=== PATIENT | male | born 1990 | race Caucasian/White ===

== ENCOUNTER 2017-08-24 00:52 | Emergency (ER) | payer MEDICAID, OTHER ==
--- NOTE | 2017-08-24 01:20 | EDM.PDOC ---
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 Note the patient caught his finger between the handle of a hammer and a piece of steel with no history of foreign body, previous injury to this finger, paresthesias, neurological deficits, or other complaints or injuries. He is right-handed. He is uncertain when he last received his tetanus booster. No recent history of abdominal pain, heartburn, nausea, diarrhea, melena, gross hematochezia, or any food intolerance, including fatty foods, etc.. The patient also denies any recent fever, cough, wheezing, dyspnea, etc.. He did rinse the laceration at work with dressing also placed prior to arrival. Onset: Today, Sudden Onset Date: 08/24/17 Onset Time: 00:40 Duration: Constant Location: Reports: Upper Extremity, Right. Denies: Head, Face, Neck, Chest, Abdomen, Back, Pelvis, Upper Extremity, Left, Radiates to Quality: Reports: Same as Previous Episode, Throbbing Severity: Moderate Improves with: Reports: Rest Worsens with: Reports: Movement Context: Reports: Trauma (As above) Associated Symptoms: Denies: Confusion, Chest Pain, Cough, Diaphoresis, Fever/ Chills, Loss of Appetite, Nausea/Vomiting, Shortness of Breath, Syncope, Weakness Treatments FORENSIC SPECIALIST: Reports: Dressing(s) Right 2-Index finger Pain Score (Numeric/FACES): 5 - Related Data Allergies Allergy/AdvReac Type Severity Reaction Status Date / Time No Known Allergies Allergy Verified 08/24/17 01:01 Home Meds: Home Meds Clindamycin HCl 150 mg PO QID #40 capsule 08/24/17 [Rx] Past Medical History Musculoskeletal History: Reports: Fracture, Other (See Below). Denies: Gout, RA , SLE Other Musculoskeletal History: Multiple previous fractures all secondary to skateboard injuries including right 10th rib fracture on 04/21/13, right fifth metacarpal fracture on 11/29/98, right mid tibial and fibular fracture at age 15 , right ankle fracture on 03/02/05, right wrist fracture at age 9, right proximal radial fracture at age 23, and right second and third metatarsal fractures on 09/12/07 Neurological History: Denies: Concussion, Head Trauma Psychiatric History: Reports: Addiction, Other (See Below) Other Psychiatric History: Previous history of marijuana use as below - Past Surgical History Musculoskeletal Surgical History: Reports: None. Denies: ORIF Social & Family History - Tobacco Use Smoking Status *Q: Current Every Day Smoker Tobacco Use Within Last Twelve Months: Cigarettes Years of Tobacco use: 10 Packs/Tins Daily: 0.4 Packs/Tins Daily Comment: 1/3-1 pack per day with additional e-cigarette use since age 17 Used Tobacco, but Quit: No Smoking Cessation Information Provided To Patient: Yes Second Hand Smoke Exposure: No Second Hand Smoke Education Provided: No - Recreational Drug Use Recreational Drug Use: Yes Drug Use in Last 12 Months: No Recreational Drug Type: Reports: Marijuana/Hashish (Daily marijuana use between ages 17 and 24). Denies: Amphetamines (Speed), Cocaine, Heroin, LSD (Acid), Methamphetamine, Morphine, Oxycodone Recreational Drug Route: Reports: Inhaled - Living Situation & Occupation Living situation: Reports: Single, Alone Occupation: Employed ([employer]) Review of Systems - Review of Systems Review Of Systems: ROS reveals no pertinent complaints other than HPI. ED EXAM, GENERAL - Physical Exam Exam: See Below Exam Limited By: No Limitations General Appearance: Alert, WD/WN, No Apparent Distress Head: Atraumatic, Normocephalic. No: Facial Swelling, Facial Tenderness, Sinus Tenderness Neck: Normal Inspection, Supple, Non-Tender, Full Range of Motion. No: Lymphadenopathy (L), Lymphadenopathy (R) Respiratory/Chest: No Respiratory Distress, Lungs Clear, Normal Breath Sounds, No Accessory Muscle Use, Chest Non-Tender. No: Pleural Rub, Retractions Cardiovascular: Normal Peripheral Pulses, Regular Rate, Rhythm, No Edema, No Gallop, No JVD, No Murmur, No Rub. No: Gallop/S3, Gallop/S4, Friction Rub Peripheral Pulses: 2+: Radial (L), Radial (R) GI/Abdominal: Normal Bowel Sounds, Soft, Non-Tender, No Organomegaly, No Distention, No Abnormal Bruit, No Mass, Pelvis Stable. No: Guarding (Male) Exam: Deferred Rectal (Males) Exam: Deferred Back Exam: Normal Inspection, Full Range of Motion. No: CVA Tenderness (L), CVA Tenderness (R), Muscle Spasm Extremities: Normal Capillary Refill, Limited Range of Motion (Digit 2 of the right hand secondary to fracture and swelling), Other (Mild ecchymosis, swelling , and localized palpation pain over the middle phalanx of digit #2 of the right hand. 1 cm laceration over the mid palmar surface of the middle phalanx with no deformity, bone protrusion, etc. Additional 2 superficial lacerations over the dorsal surface of the same area not requiring repair) Neurological: Alert, Oriented, CN II-XII Intact, Normal Cognition, Normal Gait, No Motor/Sensory Deficits Psychiatric: Normal Affect, Normal Mood Skin Exam: Ecchymosis, Wound/Incision (As above) Lymphatic: No Adenopathy ED TRAUMA EXTREMITY PROCEDURES - Laceration/Wound Repair Right Middle Ventral Finger Lac/Wound Length In cm: 1.0 Appearance: Superficial, Subcutaneous, Irregular, Clean Distal NVT: Neuro & Vascular Intact, No Tendon Injury Anesthetic Type: Local Local Anesthesia - Lidocaine (Xylocaine): 1% Plain Local Anesthetic Volume: 4cc Skin Prep: Providone-Iodine (Betadine) Saline Irrigation (cc's): 0 Exploration/Debridement/Repair: Wound Explored, In a Bloodless Field, Explored to Base, No Foreign Material Found Closed With: Sutures Suture Size: 4-0 # of Sutures: 3 Suture Type: Nylon, Interrupted, Simple Sterile Dressing Applied: Nurse Tetanus Status Addressed: Yes Complications: No Course - Vital Signs Last Recorded V/S: Last Vital Signs Temp 36.5 C 08/24/17 00:54 Pulse 75 08/24/17 00:54 Resp 18 08/24/17 00:54 BP 120/68 08/24/17 00:54 Pulse Ox 98 08/24/17 00:54 Vital Signs - 24 hr 08/24/17 00:54 Temperature [ 36.5 C Temporal] Pulse, 75 Peripheral [ Left Pulse Oximetry] Respiratory 18 Rate Blood Pressure 120/68 [Left Upper Arm ] O2 Sat by Pulse 98 Oximetry - Orders/Labs/Meds Orders: Active Orders 24 hr Category Date Time Status Vaccines to be Administered [RC] PER UNIT ROUTINE Care 08/24/17 01:23 Active Fingers Second Digit Rt F6 [CR] Stat Exams 08/24/17 01:20 Ordered Durable Medical Equipment for Discharge [DME for Oth 08/24/17 02:08 Ordered Discharge] [COMM] Routine Obtain Past Medical Record [OM.PC] Routine Oth 08/24/17 01:20 Active Labs: None Meds: Medications Discontinued Medications Generic Name Dose Route Start Last Admin Trade Name Quita PRN Reason Stop Dose Admin Clindamycin HCl 150 mg 08/24/17 02:09 08/24/17 02:15 Cleocin PO 08/24/17 02:10 150 mg ONETIME ONE Administration Diphtheria/Tetanus/Acell Pertussis 0.5 ml 08/24/17 01:23 08/24/17 01:40 Adacel IM 08/24/17 01:24 0.5 ml .ONCE ONE Administration Lidocaine HCl 5 ml 08/24/17 01:22 08/24/17 01:51 Xylocaine-Mpf 1% INJECT 08/24/17 01:23 5 ml ONETIME ONE Administration Lidocaine HCl 5 ml 08/24/17 01:23 08/24/17 01:58 Xylocaine-Mpf 1% INJECT 08/24/17 01:24 Not Given ONETIME ONE Neomycin/Polymyxin/Bacitracin 1 each 08/24/17 01:22 08/24/17 01:43 Triple Antibiotic Oint TOP 08/24/17 01:23 1 each ONETIME ONE Administration - Radiology Interpretation Free Text/Narrative:: X-rays of digit #2 of the right hand, complete, shows evidence of a comminuted, non-angulated, nondisplaced fracture of the entire midshaft of the middle phalanx with no evidence of foreign body or dislocation Departure - Departure Time of Disposition: 02:25 Disposition: Home, Self-Care 01 Condition: Good Clinical Impression: Laceration, Fracture, Tobacco abuse counseling - Discharge Information Prescriptions: Clindamycin HCl 150 mg PO QID #40 capsule Instructions: Finger Fracture, [id number], Laceration Care, Adult, Easy-to- Read, Stitches, [place], or Adhesive Wound Closure Referrals: Nathalie Rush PA-C [Primary Care Provider] - Forms: ED Department Discharge Additional Instructions: ED HPI GENERAL MEDICAL PROBLEM - General Chief Complaint: Upper Extremity Injury/Pain Stated Complaint: right index finger injury Time Seen by Provider: 08/24/17 01:15 Source of Information: Reports: Patient, Old Records ([facility] chart/EMR) History Limitations: Reports: No Limitations - History of Present Illness INITIAL COMMENTS - FREE TEXT/NARRATIVE: Patient was brought to the emergency room via transport vehicle from [facility] for evaluation of a second right finger laceration and contusion, which occurred at about 00:40 hours this evening. Note the patient caught his finger between the handle of a hammer and a piece of steel with no history of foreign body, previous injury to this finger, paresthesias, neurological deficits, or other complaints or injuries. He is right-handed. He is uncertain when he last received his tetanus booster. No recent history of abdominal pain, heartburn, nausea, diarrhea, melena, gross hematochezia, or any food intolerance, including fatty foods, etc.. The patient also denies any recent fever, cough, wheezing, dyspnea, etc.. He did rinse the laceration at work with dressing also placed prior to arrival. Onset: Today, Sudden Onset Date: 08/24/17 Onset Time: 00:40 Duration: Constant Location: Reports: Upper Extremity, Right. Denies: Head, Face, Neck, Chest, Abdomen, Back, Pelvis, Upper Extremity, Left, Radiates to Quality: Reports: Same as Previous Episode, Throbbing Severity: Moderate Improves with: Reports: Rest Worsens with: Reports: Movement Context: Reports: Trauma (As above) Associated Symptoms: Denies: Confusion, Chest Pain, Cough, Diaphoresis, Fever/ Chills, Loss of Appetite, Nausea/Vomiting, Shortness of Breath, Syncope, Weakness Treatments FORENSIC SPECIALIST: Reports: Dressing(s) Right 2-Index finger Pain Score (Numeric/FACES): 5 - Related Data Allergies Allergy/AdvReac Type Severity Reaction Status Date / Time No Known Allergies Allergy Verified 08/24/17 01:01 Home Meds: Home Meds . [No Known Home Meds] 08/24/17 [History] Past Medical History Musculoskeletal History: Reports: Fracture. Denies: Gout, RA, SLE Course - Vital Signs Last Recorded V/S: Last Vital Signs Temp 36.5 C 08/24/17 00:54 Pulse 75 08/24/17 00:54 Resp 18 08/24/17 00:54 BP 120/68 08/24/17 00:54 Pulse Ox 98 08/24/17 00:54 - Orders/Labs/Meds Orders: Active Orders 24 hr Category Date Time Status Vaccines to be Administered [RC] PER UNIT ROUTINE Care 08/24/17 01:23 Active Fingers Second Digit Rt F6 [CR] Stat Exams 08/24/17 01:20 Ordered Obtain Past Medical Record [OM.PC] Routine Oth 08/24/17 01:20 Active Meds: Medications Discontinued Medications Generic Name Dose Route Start Last Admin Trade Name Freq PRN Reason Stop Dose Admin Diphtheria/Tetanus/Acell Pertussis 0.5 ml 08/24/17 01:23 08/24/17 01:40 Adacel IM 08/24/17 01:24 0.5 ml .ONCE ONE Administration Lidocaine HCl 5 ml 08/24/17 01:22 Xylocaine-Mpf 1% INJECT 08/24/17 01:23 ONETIME ONE Lidocaine HCl 5 ml 08/24/17 01:23 Xylocaine-Mpf 1% INJECT 08/24/17 01:24 ONETIME ONE Neomycin/Polymyxin/Bacitracin 1 each 08/24/17 01:22 Triple Antibiotic Oint TOP 08/24/17 01:23 ONETIME ONE - Radiology Interpretation Free Text/Narrative:: X-rays of digit #2 of the right hand, complete, shows evidence of a comminuted, non-angulated, nondisplaced fracture of the entire midshaft of the middle phalanx with no evidence of foreign body or dislocation Departure - Departure Condition: Good Clinical Impression: Laceration, Fracture, Tobacco abuse counseling - Discharge Information Instructions: Finger Fracture, [id number], Laceration Care, Adult, Easy-to- Read, Stitches, Lluvia, or Adhesive Wound Closure Referrals: Nathalie Rush PA-C [Primary Care Provider] - Forms: ED Department Discharge Additional Instructions: 1. Followup with your regular provider in 10-14 days as directed for suture removal and repeat x-rays of the second finger of your right hand. 2. Tylenol 650 mg by mouth every 4 hours and/or OTC ibuprofen 2-3 tabs by mouth every 6 hours with food as directed./needed. 3. Antibacterial soap wash/soak with subsequent antibacterial dressing such as Neosporin, etc. as directed 2 times per day until the wound or laceration site completely heals. Keep the area clean and dry with activity restrictions as discussed. 4. Ice packs to affected area as needed 5. Work excuse- See Form 6. Activity restrictions as discussed, including 10 pound lifting restriction. Finger splint is to be worn at all times with exception of bathing and wound care until otherwise directed 7. Stop all tobacco and e-cigarette use TERRI as directed/per provided information and consider contacting [employer]uit [employer]ne, etc.. 8. Immediately after this visit verify that your cellular telephone's voicemail has been activated and is empty. Also verify that your home telephone 's answering machine is operating properly and has space to receive messages. Note that it is sometimes necessary for us to be able to contact you at a later date to discuss your medical care. - My Orders Last 24 Hours: My Active Orders 08/24/17 01:20 Fingers Second Digit Rt F6 [CR] Stat Obtain Past Medical Record [OM.PC] Routine 08/24/17 01:23 Vaccines to be Administered [RC] PER UNIT ROUTINE - Assessment/Plan Last 24 Hours: My Active Orders 08/24/17 01:20 Fingers Second Digit Rt F6 [CR] Stat Obtain Past Medical Record [OM.PC] Routine 08/24/17 01:23 Vaccines to be Administered [RC] PER UNIT ROUTINE 1. Followup with your regular provider in 10-14 days as directed for suture removal and repeat x-rays of the second finger of your right hand. 2. Tylenol 650 mg by mouth every 4 hours and/or OTC ibuprofen 2-3 tabs by mouth every 6 hours with food as directed./needed. 3. Antibacterial soap wash/soak with subsequent antibacterial dressing such as Neosporin, etc. as directed 2 times per day until the wound or laceration site completely heals. Keep the area clean and dry with activity restrictions as discussed. 4. Ice packs to affected area as needed 5. Work excuse- See Form 6. Activity restrictions as discussed, including 10 pound lifting restriction. Finger splint is to be worn at all times with exception of bathing and wound care until otherwise directed 7. Stop all tobacco and e-cigarette use TERRI as directed/per provided information and consider contacting Quit LIne, etc.. 8. Immediately after this visit verify that your cellular telephone's voicemail has been activated and is empty. Also verify that your home telephone 's answering machine is operating properly and has space to receive messages. Note that it is sometimes necessary for us to be able to contact you at a later date to discuss your medical care. 9. Wear a helmet, safety gear, etc. at all times while skateboarding, etc. as discussed - Problem List & Annotations (1) Fracture SNOMED Code(s): 578556251 Code(s): T14.8XXA - OTHER INJURY OF UNSPECIFIED BODY REGION, INITIAL ENCOUNTER Status: Acute Priority: High Current Visit: Yes Onset Date: Annotation/Comment:: Significant comminuted fracture of the middle phalanx of digit number 2 the right hand as above. Finger splint therapy. Close follow-up by regular provider as per discharge instructions. [employer] work excuse and Workmen's Compensation forms were completed. Activity restrictions were discussed. He does have a previous history of recurrent fractures as above, and he continues to skateboard. Helmet use, etc. strongly advised as per discharge instructions. (2) Laceration SNOMED Code(s): 904572702 Code(s): YJA0783 - Status: Acute Priority: High Current Visit: Yes Onset Date: 08/24/17 Annotation/Comment:: Excellent results with laceration repair as above. DTaP given. Wound care and activity restrictions discussed. (3) Tobacco abuse counseling SNOMED Code(s): 047379915, 160391137, 377376090 Code(s): Z71.6 - TOBACCO ABUSE COUNSELING Status: Chronic Priority: Medium Current Visit: Yes Annotation/Comment:: Stop all tobacco and e- cigarette use TERRI as directed/per provided information and consider contacting Quit LIne, etc.. - Problem List Review Problem List Initiated/Reviewed/Updated: Yes - My Orders Last 24 Hours: My Active Orders 08/24/17 01:20 Fingers Second Digit Rt F6 [CR] Stat Obtain Past Medical Record [OM.PC] Routine 08/24/17 01:23 Vaccines to be Administered [RC] PER UNIT ROUTINE 08/24/17 02:08 Durable Medical Equipment for Discharge [DME for Discharge] [COMM] Routine - Assessment/Plan Last 24 Hours: My Active Orders 08/24/17 01:20 Fingers Second Digit Rt F6 [CR] Stat Obtain Past Medical Record [OM.PC] Routine 08/24/17 01:23 Vaccines to be Administered [RC] PER UNIT ROUTINE 08/24/17 02:08 Durable Medical Equipment for Discharge [DME for Discharge] [COMM] Routine Assessment:: As above Plan: As above. Extensive precautions were given to the patient, who is in agreement with the treatment plan. See Patient Instructions for further treatment and plan.
[2017-08-24] MEDS ORDERED: Bacitracin/Neomycin/Polymyxin B Oint 0.9 GM U/D Packet TOP ONE (01:22)
[2017-08-24] MEDS ORDERED: Diphtheria,Pertussis(Acell),Tetanus Vaccine 0.5 ML SDV IM ONE (01:23)
[2017-08-24] MEDS ORDERED: Clindamycin HCl 150 MG Cap PO ONE (02:09)
== END 2017-08-24 02:25 | disposition home or self-care (01) ==
LOC: LL.ED 00:52
DX: S61.210A Laceration without foreign body of right index finger without damage to nail, initial encounter (principal); F17.210 Nicotine dependence, cigarettes, uncomplicated; Z23 Encounter for immunization; Z71.6 Tobacco abuse counseling
CPT/HCPCS: 12001; 73140-F6; 90471; 90715; 99284; A9270-GY

== ENCOUNTER 2024-10-25 18:10 | Emergency (ER) | payer OTHER | END 2024-10-25 18:53 | disposition home or self-care (01) | LOC: LL.ED 18:10 | DX: E86.0 Dehydration (principal) | CPT/HCPCS: 99283 ==